=== PATIENT | male | born 1975 | race Caucasian/White ===

== ENCOUNTER 2016-09-30 12:48 | Inpatient (IN) | payer OTHER ==
[2016-09-30 13:11] VITALS: BMI 31.6
--- NOTE | 2016-09-30 13:59 | HP ---
CIWA Score - CIWA Score Nausea/Vomitin-Mild Nausea/No Vomiting Muscle Tremors: 4-Moderate,w/Arms Extend Anxiety: 4-Mod. Anxious/Guarded Agitation: 1-Slight > Activity Paroxysmal Sweats: 1-Minimal Palms Moist Orientation: 0-Oriented Tacttile Disturbances: 1-Very Mild Itch/Numbness Auditory Disturbances: 1-Very Mild Visual Disturbances: 1-Very Mild Sensitivity Headache: 2-Mild CIWA-Ar Total Score: 16 Admission ROS BHS - HPI Chief Complaint: I've lost my job, my marriage, I have to get hold of this and get back on track Allergies/Adverse Reactions: Allergies Allergy/AdvReac Type Severity Reaction Status Date / Time No Known Allergies Allergy Verified 09/30/16 13:52 History of Present Illness: 41 yo gentleman here for detox from alcohol - no seizures but occasional black outs,. Last detox seven months ago in - went into rehab but relapsed in July. Exam Limitations: No Limitations - Ebola screening Have you traveled outside of the country in the last 21 days: No Have you had contact with anyone from an Ebola affected area: No Have you been sick,other than usual withdrawal symptoms: No Do you have a fever: No - Review of Systems Constitutional: Loss of Appetite, Night Sweats, Changes in sleep EENT: reports: Blurred Vision Respiratory: reports: No Symptoms reported Cardiac: reports: No Symptoms Reported GI: reports: Poor Appetite, Indigestion : reports: Frequency Musculoskeletal: reports: Back Pain Integumentary: reports: No Symptoms Reported Neuro: reports: Headache Endocrine: reports: No Symptoms Reported Hematology: reports: No Symptoms Reported Psychiatric: reports: Judgement Intact, Mood/Affect Appropiate, Orientated x3, Anxious Other Systems: Reviewed and Negative Patient History - Patient Medical History Hx Anemia: No Hx Asthma: No Hx Chronic Obstructive Pulmonary Disease (COPD): No Hx Cancer: No Hx Cardiac Disorders: No Hx Congestive Heart Failure: No Hx Hypertension: No Hx Hypercholesterolemia: No Hx Pacemaker: No HX Cerebrovascular Accident: No Hx Seizures: No Hx Dementia: No Hx Diabetes: No Hx Gastrointestinal Disorders: No Hx Liver Disease: No Hx Genitourinary Disorders: No Hx Sexually Transmitted Disorders: No Hx Renal Disease (ESRD): No Hx Thyroid Disease: No Hx Human Immunodeficiency Virus (HIV): No Hx Hepatitis C: No Hx Depression: Yes (never treated) Hx Suicide Attempt: No Hx Bipolar Disorder: No Hx Schizophrenia: No Other Medical History: left knee arthritis, low back pain, 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 (CXR negative) - Patient Surgical History Past Surgical History: Yes Hx Cholecystectomy: Yes (2008) Hx Genitourinary Surgery: Yes (testicular torsion surgery age 11) Anesthesia Reaction: No - PPD History Previous Implant?: Yes Documented Results: Positive w/o proof PPD to be Administered?: No - Reproductive History Patient is a Female of Child Bearing Age (11 -55 yrs old): No (male) - Smoking Cessation Smoking history: Current every day smoker Have you smoked in the past 12 months: Yes Aproximately how many cigarettes per day: 30 Hx Chewing Tobacco Use: No Initiated information on smoking cessation: Yes 'Breaking Loose' booklet given: 09/30/16 (give on floor) - Substance & Tx. History Hx Alcohol Use: Yes Hx Substance Use: Yes Substance Use Type: Alcohol, Cocaine Hx Substance Use Treatment: Yes (detox in [place] 01/2016 ) - Substances Abused Alcohol Route: Oral Frequency: Daily Amount used: 36 sixteen oz beers; 2 pints liquor Age of first use: 12 Date of Last Use: 09/30/16 Crack Route: Smoking Frequency: 1-2 times per week Amount used: $150 Age of first use: 29 Date of Last Use: 09/30/16 Family Disease History - Family Disease History Family Disease History: Diabetes: Mother (alive, hx etoh, liver disease), Heart Disease: Mother, Other: Father ( mva), Mother, Brother (one drinks) Admission Physical Exam [facility] - Vital Signs Vital Signs: Vital Signs - 24 hr 09/30/16 13:09 Temperature 96 F L Pulse Rate 98 H Respiratory 20 Rate Blood Pressure 142/78 - Physical General Appearance: Yes: Nourished, Appropriately Dressed, Mild Distress, Anxious HEENTM: Yes: Hearing grossly Normal, Normal ENT Inspection, Normal Voice Respiratory: Yes: Normal Breath Sounds, No Respiratory Distress Neck: Yes: No masses,lesions,Nodules, Supple Breast: Yes: Breast Exam Deferred Cardiology: Yes: Regular Rhythm, Regular Rate Abdominal: Yes: Soft Back: Yes: Normal Inspection Musculoskeletal: Yes: full range of Motion, Gait Steady Extremities: Yes: Normal Inspection, Normal Range of Motion, Tremors Neurological: Yes: Fully Oriented, Alert, Normal Mood/Affect Integumentary: Yes: Normal Color, Warm Lymphatic: Yes: Within Normal Limits - Diagnostic (1) Alcohol dependence with uncomplicated withdrawal Current Visit: Yes Status: Chronic (2) Cocaine dependence Current Visit: Yes Status: Chronic Qualifiers: Substance use status: uncomplicated Qualified Code(s): F14.20 - Cocaine dependence, uncomplicated (3) Nicotine dependence Current Visit: Yes Status: Chronic Qualifiers: Nicotine product type: cigarettes Substance use status: uncomplicated Qualified Code(s): F17.210 - Nicotine dependence, cigarettes, uncomplicated (4) PPD positive Current Visit: Yes Status: Chronic Comment: never treated Cleared for Admission S - Detox or Rehab [facility] Level of Care: Medically Managed Detox Regimen/Protocol: Librium S Breath Alcohol Content Breath Alcohol Content: 0 Urine Drug Screen - Results Drug Screen Negative: No Urine Drug Screen Results: KAREN-Cocaine
[2016-09-30] MEDS ORDERED: MENTHOL/PHENOL 1 EACH UD MM PRN (14:02)
[2016-09-30] MEDS ORDERED: NICOTINE POLACRILEX 4 MG GUM BUC PRN (14:02)
[2016-09-30] MEDS ORDERED: guaiFENesin/D-METHORPHAN HB 10 ML UNIT-DOSE CUPS PO PRN (14:02)
[2016-09-30] MEDS ORDERED: P-EPHED 60MG/TRIPROLIDI 2.5MG TABLET PO PRN (14:02)
[2016-09-30] MEDS ORDERED: ACETAMINOPHEN 325 MG TABLET (FP) PO PRN (14:02)
[2016-09-30] MEDS ORDERED: chlordiazePOXIDE HCL 25 MG CAPSULE PO ONE (14:02)
[2016-09-30] MEDS ORDERED: MAGNESIUM HYDROX 2400MG/30ML ORAL SUSPENSION 30 ML CUP PO PRN (14:02)
[2016-09-30] MEDS ORDERED: chlordiazePOXIDE HCL 25 MG CAPSULE PO PRN (14:02)
[2016-09-30] MEDS ORDERED: LOPERAMIDE HCL 2 MG CAPSULE PO PRN (14:02)
[2016-09-30] MEDS ORDERED: MAG HYDROX/AL HYDROX/SIMETH 30 ML UNIT-DOSE CUP PO PRN (14:02)
[2016-09-30] MEDS ORDERED: MAGNESIUM CITRATE 300 ML BOTTLE PO PRN (14:02)
[2016-09-30] MEDS ORDERED: IBUPROFEN 400 MG TABLET (FP) PO PRN (14:02)
[2016-09-30] MEDS ORDERED: hydrOXYzine PAMOATE 50 MG CAPSULE (FP) PO PRN (14:02)
[2016-09-30] MEDS: NICOTINE 21 MG/24 HOURS TOPICAL PATCH TD SCH (15:34)
--- NOTE | 2016-09-30 16:24 | CONSULT ---
[facility] Psychiatric Consult - Data Date of interview: 09/30/16 Admission source: [facility] Identifying data: First admission to [facility] for this 41 y/o male seeking detox treatment on for alcohol and cocaine dependence.Patient is ,a father of three,homeless,unemployed and supported on food stamps. Substance Abuse History: - Smoking Cessation. Smoking history: Current every day smoker. Have you smoked in the past 12 months: Yes. Aproximately how many cigarettes per day: 30. Hx Chewing Tobacco Use: No. Initiated information on smoking cessation: Yes. 'Breaking Loose' booklet given: 09/30/16 (give on floor ). - Substance & Tx. History. Hx Alcohol Use: Yes. Hx Substance Use: Yes. Substance Use Type: Alcohol, Cocaine. Hx Substance Use Treatment: Yes (detox in [place] 01/2016 ). - Substances Abused. Alcohol. Route: Oral. Frequency: Daily. Amount used: 36 sixteen oz beers; 2 pints liquor. Age of first use: 12. Date of Last Use: 09/30/16. Crack. Route: Smoking. Frequency: 1-2 times per week. Amount used: $150. Age of first use: 29. Date of Last Use: . Confirmed by the patient in this interview. 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 Physical/Sexual Abuse/Trauma History: Patient denies. Additional Comment: Urine Drug Screen Results: KAREN-Cocaine.Noted. Mental Status Exam - Mental Status Exam Alert and Oriented to: Time, Place, Person Cognitive Function: Good Patient Appearance: Well Groomed Mood: Anxious, Apprehensive, Hopeful Affect: Mood Congruent Patient Behavior: Fatigued, Cooperative Speech Pattern: Clear, Appropriate Voice Loudness: Normal Thought Process: Goal Oriented Thought Disorder: Not Present Hallucinations: Denies Suicidal Ideation: Denies Homicidal Ideation: Denies Insight/Judgement: Poor Sleep: Poorly (patient declines to be on hypnotic medications) Appetite: Good Muscle strength/Tone: Normal Gait/Station: Normal Psychiatric Findings - Problem List ([place] 1, 2,3) (1) Alcohol dependence with uncomplicated withdrawal Current Visit: Yes Status: Chronic (2) Cocaine dependence Current Visit: Yes Status: Acute Qualifiers: Substance use status: uncomplicated Qualified Code(s): F14.20 - Cocaine dependence, uncomplicated (3) Nicotine dependence Current Visit: Yes Status: Acute Qualifiers: Nicotine product type: cigarettes Substance use status: uncomplicated Qualified Code(s): F17.210 - Nicotine dependence, cigarettes, uncomplicated (4) PPD positive Current Visit: Yes Status: Acute Comment: never treated - Initial Treatment Plan Initial Treatment Plan: Psychoeducation.Detoxification.Observation.
[2016-09-30] MEDS: chlordiazePOXIDE HCL 25 MG CAPSULE PO SCH ×2 (17:50→23:38)
[2016-09-30 18:09] LABS: URINE APPEARANCE CLEAR; URINE BILIRUBIN NEGATIVE (NEGATIVE); URINE BLOOD NEGATIVE (NEGATIVE); URINE COLOR LTYELLOW; URINE GLUCOSE (UA) NEGATIVE (NEGATIVE); URINE KETONE NEGATIVE (NEGATIVE); URINE NITRITE NEGATIVE (NEGATIVE); URINE PROTEIN NEGATIVE (NEGATIVE); URINE UROBILINOGEN NEGATIVE E.U./dl (0.2-1.0)
[2016-09-30 18:13] LABS: URINE LEUK ESTERASE TRACE (NEGATIVE)
[2016-09-30 18:18] LABS: URINE BACTERIA RARE /hpf (NONE SEEN); URINE MUCUS RARE; URINE WBC 1 /hpf (3-5)
[2016-09-30] MEDS: THIAMINE HCL 100 MG TABLET (FP) PO SCH (23:38)
[2016-10-01] MEDS: chlordiazePOXIDE HCL 25 MG CAPSULE PO SCH ×4 (05:25→22:23)
[2016-10-01 10:35] LABS: ALBUMIN 3.8 g/dl (3.4-5.0); ANION GAP 11 (8-16); BILIRUBIN,TOTAL 0.4 mg/dL (0.2-1.0); CO2 26 mmol/L (21-32); CREATININE 1.2 mg/dL (0.7-1.3); GLUCOSE,RANDOM 139 mg/dL (74-106); SGOT/AST 13 U/L (15-37); SGPT/ALT 49 U/L (12-78); TOT PROT 6.4 g/dl (6.4-8.2)
[2016-10-01 10:36] LABS: ALK PHOS 114 U/L (45-117)
[2016-10-01 10:37] LABS: MCH 31.7 pg (25.7-33.7); MCHC 33.2 g/dl (32.0-35.9); MEAN CELL VOLUME 95.4 fl (80-96); MEAN PLT VOLUME 8.9 fl (7.5-11.1); PLATELET COUNT 188 K/MM3 (134-434); RDW 13.4 % (11.9-15.9); WHITE BLOOD COUNT 5.8 K/mm3 (4.0-10.0)
[2016-10-01] MEDS: PRENATAL VITAMINS W/ FOLIC ACID TABLET (FP) PO SCH (10:41)
[2016-10-01] MEDS: NICOTINE 21 MG/24 HOURS TOPICAL PATCH TD SCH (10:42)
--- NOTE | 2016-10-01 13:33 | PN ---
[facility] CIWA - CIWA Score Nausea/Vomitin-No Nausea/No Vomiting Muscle Tremors: 4-Moderate,w/Arms Extend Anxiety: 4-Mod. Anxious/Guarded Agitation: 3 Paroxysmal Sweats: 3 Orientation: 0-Oriented Tacttile Disturbances: 0-None Auditory Disturbances: 0-None Visual Disturbances: 0-None Headache: 0-None Present CIWA-Ar Total Score: 14 BHS Progress Note (SOAP) Subjective: tremors,sweating,interrupted sleep,restless Objective: 10/01/16 13:32 Vital Signs - 8 hr 10/01/16 10/01/16 06:30 11:54 Temperature 97 F L 98.3 F Pulse Rate 73 84 Respiratory 18 18 Rate Blood Pressure 119/81 112/75 Laboratory Tests 09/30/16 10/01/16 10/01/16 17:40 07:45 07:45 WBC 5.8 RBC 4.69 Hgb 14.9 Hct 44.7 MCV 95.4 MCHC 33.2 RDW 13.4 Plt Count 188 MPV 8.9 Sodium 143 Potassium 3.6 Chloride 106 Carbon Dioxide 26 Anion Gap 11 BUN 13 Creatinine 1.2 Creat Clearance w eGFR > 60 Random Glucose 139 H Calcium 9.0 Total Bilirubin 0.4 AST 13 L ALT 49 Alkaline Phosphatase 114 Total Protein 6.4 Albumin 3.8 Urine Color Ltyellow Urine Appearance Clear Urine pH 5.0 Ur Specific [place] 1.006 Urine Protein Negative Urine Glucose (UA) Negative Urine Ketones Negative Urine Blood Negative Urine Nitrite Negative Urine Bilirubin Negative Urine Urobilinogen Negative Ur Leukocyte Esterase Trace H Urine RBC None Urine WBC 1 Urine Bacteria Rare Urine Mucus Rare RPR Titer 10/01/16 07:45 WBC RBC Hgb Hct MCV MCHC RDW Plt Count MPV Sodium Potassium Chloride Carbon Dioxide Anion Gap BUN Creatinine Creat Clearance w eGFR Random Glucose Calcium Total Bilirubin AST ALT Alkaline Phosphatase Total Protein Albumin Urine Color Urine Appearance Urine pH Ur Specific [place] Urine Protein Urine Glucose (UA) Urine Ketones Urine Blood Urine Nitrite Urine Bilirubin Urine Urobilinogen Ur Leukocyte Esterase Urine RBC Urine WBC Urine Bacteria Urine Mucus RPR Titer Nonreactive labs noted Assessment: 10/01/16 13:33 Withdrawal sx. Plan: Continue detox
[2016-10-01] MEDS: diphenhydrAMINE HCL 50 MG CAPSULE PO PRN (22:23)
[2016-10-01] MEDS: THIAMINE HCL 100 MG TABLET (FP) PO SCH (22:23)
--- NOTE | 2016-10-02 00:48 | EKG ---
Test Reason : Blood Pressure : / mmHG Vent. Rate : 088 BPM Atrial Rate : 088 BPM P-R Int : 142 ms QRS Dur : 086 ms QT Int : 378 ms P-R-T Axes : 055 068 024 degrees QTc Int : 457 ms NORMAL SINUS RHYTHM NORMAL ECG NO PREVIOUS ECGS AVAILABLE Confirmed by MALU KNOX MD ([id number]) on 10/02/2016 12:48:12 AM Referred By: Confirmed By:MALU KNOX MD
[2016-10-02] MEDS: chlordiazePOXIDE HCL 25 MG CAPSULE PO SCH ×2 (05:21→10:25)
[2016-10-02] MEDS: NICOTINE 21 MG/24 HOURS TOPICAL PATCH TD SCH (10:25)
[2016-10-02] MEDS: PRENATAL VITAMINS W/ FOLIC ACID TABLET (FP) PO SCH (10:25)
--- NOTE | 2016-10-02 16:49 | PN ---
[facility] CIWA - CIWA Score Nausea/Vomitin-No Nausea/No Vomiting Muscle Tremors: 3 Anxiety: 2 Agitation: 1-Slight > Activity Paroxysmal Sweats: 3 Orientation: 0-Oriented Tacttile Disturbances: 0-None Auditory Disturbances: 2-Mild Harshness/Frighten Visual Disturbances: 3-Moderate Sensitivity Headache: 0-None Present CIWA-Ar Total Score: 14 BHS Progress Note (SOAP) Subjective: Fatigue, Constipation, Sweating, Body Aches. Objective: PT. A & O X 3, OBSERVED AMBULATING ON UNIT. 10/02/16 16:47 Vital Signs Temperature 96.7 F L 10/02/16 13:04 Pulse Rate 84 10/02/16 13:04 Respiratory Rate 18 10/02/16 13:04 Blood Pressure 118/77 10/02/16 13:04 O2 Sat by Pulse Oximetry (%) Laboratory Last Values WBC 5.8 K/mm3 (4.0-10.0) 10/01/16 07:45 RBC 4.69 M/mm3 (4.00-5.60) 10/01/16 07:45 Hgb 14.9 GM/dL (11.7-16.9) 10/01/16 07:45 Hct 44.7 % (35.4-49) 10/01/16 07:45 MCV 95.4 fl (80-96) 10/01/16 07:45 MCHC 33.2 g/dl (32.0-35.9) 10/01/16 07:45 RDW 13.4 % (11.9-15.9) 10/01/16 07:45 Plt Count 188 K/MM3 (134-434) 10/01/16 07:45 MPV 8.9 fl (7.5-11.1) 10/01/16 07:45 Sodium 143 mmol/L (136-145) 10/01/16 07:45 Potassium 3.6 mmol/L (3.5-5.1) 10/01/16 07:45 Chloride 106 mmol/L (98-107) 10/01/16 07:45 Carbon Dioxide 26 mmol/L (21-32) 10/01/16 07:45 Anion Gap 11 (8-16) 10/01/16 07:45 BUN 13 mg/dL (7-18) 10/01/16 07:45 Creatinine 1.2 mg/dL (0.7-1.3) 10/01/16 07:45 Creat Clearance w eGFR > 60 (>60) 10/01/16 07:45 Random Glucose 139 mg/dL (74-106) H 10/01/16 07:45 Calcium 9.0 mg/dL (8.5-10.1) 10/01/16 07:45 Total Bilirubin 0.4 mg/dL (0.2-1.0) 10/01/16 07:45 AST 13 U/L (15-37) L 10/01/16 07:45 ALT 49 U/L (12-78) 10/01/16 07:45 Alkaline Phosphatase 114 U/L (45-117) 10/01/16 07:45 Total Protein 6.4 g/dl (6.4-8.2) 10/01/16 07:45 Albumin 3.8 g/dl (3.4-5.0) 10/01/16 07:45 Urine Color Ltyellow 09/30/16 17:40 Urine Appearance Clear 09/30/16 17:40 Urine pH 5.0 (5.0-8.0) 09/30/16 17:40 Ur Specific [place] 1.006 (1.001-1.035) 09/30/16 17:40 Urine Protein Negative (NEGATIVE) 09/30/16 17:40 Urine Glucose (UA) Negative (NEGATIVE) 09/30/16 17:40 Urine Ketones Negative (NEGATIVE) 09/30/16 17:40 Urine Blood Negative (NEGATIVE) 09/30/16 17:40 Urine Nitrite Negative (NEGATIVE) 09/30/16 17:40 Urine Bilirubin Negative (NEGATIVE) 09/30/16 17:40 Urine Urobilinogen Negative E.U./dl (0.2-1.0) 09/30/16 17:40 Ur Leukocyte Esterase Trace (NEGATIVE) H 09/30/16 17:40 Urine RBC None /hpf (0-3) 09/30/16 17:40 Urine WBC 1 /hpf (3-5) 09/30/16 17:40 Urine Bacteria Rare /hpf (NONE SEEN) 09/30/16 17:40 Urine Mucus Rare 09/30/16 17:40 RPR Titer Nonreactive (NONREACTIVE) 10/01/16 07:45 LABS NOTED. Assessment: 10/02/16 16:48 WITHDRAWAL SYMPTOMS. Plan: CONTINUE DETOX. BGM ACBK TOMORROW. PRN MILK OF MAGNESIA FOR CONSTIPATION.
--- NOTE | 2016-10-02 17:30 | PN ---
S CIWA - CIWA Score Nausea/Vomitin Muscle Tremors: 2 Anxiety: 2 Agitation: 1-Slight > Activity Paroxysmal Sweats: 3 Orientation: 0-Oriented Tacttile Disturbances: 0-None Auditory Disturbances: 2-Mild Harshness/Frighten Visual Disturbances: 2-Mild Sensitivity Headache: 0-None Present CIWA-Ar Total Score: 14 BHS Progress Note (SOAP) Subjective: Sweating, Fatigue, Constipation, body aches. Objective: PT. A & O X 3, OBSERVED AMBULATING ON UNIT. 10/02/16 16:43 Vital Signs Temperature 96.7 F L 10/02/16 13:04 Pulse Rate 84 10/02/16 13:04 Respiratory Rate 18 10/02/16 13:04 Blood Pressure 118/77 10/02/16 13:04 O2 Sat by Pulse Oximetry (%) Laboratory Last Values WBC 5.8 K/mm3 (4.0-10.0) 10/01/16 07:45 RBC 4.69 M/mm3 (4.00-5.60) 10/01/16 07:45 Hgb 14.9 GM/dL (11.7-16.9) 10/01/16 07:45 Hct 44.7 % (35.4-49) 10/01/16 07:45 MCV 95.4 fl (80-96) 10/01/16 07:45 MCHC 33.2 g/dl (32.0-35.9) 10/01/16 07:45 RDW 13.4 % (11.9-15.9) 10/01/16 07:45 Plt Count 188 K/MM3 (134-434) 10/01/16 07:45 MPV 8.9 fl (7.5-11.1) 10/01/16 07:45 Sodium 143 mmol/L (136-145) 10/01/16 07:45 Potassium 3.6 mmol/L (3.5-5.1) 10/01/16 07:45 Chloride 106 mmol/L (98-107) 10/01/16 07:45 Carbon Dioxide 26 mmol/L (21-32) 10/01/16 07:45 Anion Gap 11 (8-16) 10/01/16 07:45 BUN 13 mg/dL (7-18) 10/01/16 07:45 Creatinine 1.2 mg/dL (0.7-1.3) 10/01/16 07:45 Creat Clearance w eGFR > 60 (>60) 10/01/16 07:45 Random Glucose 139 mg/dL (74-106) H 10/01/16 07:45 Calcium 9.0 mg/dL (8.5-10.1) 10/01/16 07:45 Total Bilirubin 0.4 mg/dL (0.2-1.0) 10/01/16 07:45 AST 13 U/L (15-37) L 10/01/16 07:45 ALT 49 U/L (12-78) 10/01/16 07:45 Alkaline Phosphatase 114 U/L (45-117) 10/01/16 07:45 Total Protein 6.4 g/dl (6.4-8.2) 10/01/16 07:45 Albumin 3.8 g/dl (3.4-5.0) 10/01/16 07:45 Urine Color Ltyellow 09/30/16 17:40 Urine Appearance Clear 09/30/16 17:40 Urine pH 5.0 (5.0-8.0) 09/30/16 17:40 Ur Specific [place] 1.006 (1.001-1.035) 09/30/16 17:40 Urine Protein Negative (NEGATIVE) 09/30/16 17:40 Urine Glucose (UA) Negative (NEGATIVE) 09/30/16 17:40 Urine Ketones Negative (NEGATIVE) 09/30/16 17:40 Urine Blood Negative (NEGATIVE) 09/30/16 17:40 Urine Nitrite Negative (NEGATIVE) 09/30/16 17:40 Urine Bilirubin Negative (NEGATIVE) 09/30/16 17:40 Urine Urobilinogen Negative E.U./dl (0.2-1.0) 09/30/16 17:40 Ur Leukocyte Esterase Trace (NEGATIVE) H 09/30/16 17:40 Urine RBC None /hpf (0-3) 09/30/16 17:40 Urine WBC 1 /hpf (3-5) 09/30/16 17:40 Urine Bacteria Rare /hpf (NONE SEEN) 09/30/16 17:40 Urine Mucus Rare 09/30/16 17:40 RPR Titer Nonreactive (NONREACTIVE) 10/01/16 07:45 LABS NOTED. Assessment: 10/02/16 16:44 WITHDRAWAL SYMPTOMS Plan: CONTINUE DETOX. INCREASE PO WATER INTAKE. PRN
[2016-10-02] MEDS: chlordiazePOXIDE 5 MG CAPSULE PO SCH ×2 (17:38→22:22)
[2016-10-02] MEDS: diphenhydrAMINE HCL 50 MG CAPSULE PO PRN (22:22)
[2016-10-02] MEDS: THIAMINE HCL 100 MG TABLET (FP) PO SCH (22:22)
[2016-10-03] MEDS: chlordiazePOXIDE 5 MG CAPSULE PO SCH ×2 (05:42→10:21)
[2016-10-03] MEDS: PRENATAL VITAMINS W/ FOLIC ACID TABLET (FP) PO SCH (10:21)
[2016-10-03] MEDS: NICOTINE 21 MG/24 HOURS TOPICAL PATCH TD SCH (10:21)
--- NOTE | 2016-10-03 11:04 | PN ---
BHS Progress Note (SOAP) Subjective: ANXIETY,"WEAK", SWEATS. Objective: 10/03/16 11:02 Vital Signs Temperature 96.8 F L 10/03/16 06:43 Pulse Rate 80 10/03/16 06:43 Respiratory Rate 18 10/03/16 06:43 Blood Pressure 115/80 10/03/16 06:43 O2 Sat by Pulse Oximetry (%) Laboratory Last Values WBC 5.8 K/mm3 (4.0-10.0) 10/01/16 07:45 RBC 4.69 M/mm3 (4.00-5.60) 10/01/16 07:45 Hgb 14.9 GM/dL (11.7-16.9) 10/01/16 07:45 Hct 44.7 % (35.4-49) 10/01/16 07:45 MCV 95.4 fl (80-96) 10/01/16 07:45 MCHC 33.2 g/dl (32.0-35.9) 10/01/16 07:45 RDW 13.4 % (11.9-15.9) 10/01/16 07:45 Plt Count 188 K/MM3 (134-434) 10/01/16 07:45 MPV 8.9 fl (7.5-11.1) 10/01/16 07:45 Sodium 143 mmol/L (136-145) 10/01/16 07:45 Potassium 3.6 mmol/L (3.5-5.1) 10/01/16 07:45 Chloride 106 mmol/L (98-107) 10/01/16 07:45 Carbon Dioxide 26 mmol/L (21-32) 10/01/16 07:45 Anion Gap 11 (8-16) 10/01/16 07:45 BUN 13 mg/dL (7-18) 10/01/16 07:45 Creatinine 1.2 mg/dL (0.7-1.3) 10/01/16 07:45 Creat Clearance w eGFR > 60 (>60) 10/01/16 07:45 POC Glucometer 113 UNITS (()) 10/03/16 05:45 Random Glucose 139 mg/dL (74-106) H 10/01/16 07:45 Calcium 9.0 mg/dL (8.5-10.1) 10/01/16 07:45 Total Bilirubin 0.4 mg/dL (0.2-1.0) 10/01/16 07:45 AST 13 U/L (15-37) L 10/01/16 07:45 ALT 49 U/L (12-78) 10/01/16 07:45 Alkaline Phosphatase 114 U/L (45-117) 10/01/16 07:45 Total Protein 6.4 g/dl (6.4-8.2) 10/01/16 07:45 Albumin 3.8 g/dl (3.4-5.0) 10/01/16 07:45 Urine Color Ltyellow 09/30/16 17:40 Urine Appearance Clear 09/30/16 17:40 Urine pH 5.0 (5.0-8.0) 09/30/16 17:40 Ur Specific [place] 1.006 (1.001-1.035) 09/30/16 17:40 Urine Protein Negative (NEGATIVE) 09/30/16 17:40 Urine Glucose (UA) Negative (NEGATIVE) 09/30/16 17:40 Urine Ketones Negative (NEGATIVE) 09/30/16 17:40 Urine Blood Negative (NEGATIVE) 09/30/16 17:40 Urine Nitrite Negative (NEGATIVE) 09/30/16 17:40 Urine Bilirubin Negative (NEGATIVE) 09/30/16 17:40 Urine Urobilinogen Negative E.U./dl (0.2-1.0) 09/30/16 17:40 Ur Leukocyte Esterase Trace (NEGATIVE) H 09/30/16 17:40 Urine RBC None /hpf (0-3) 09/30/16 17:40 Urine WBC 1 /hpf (3-5) 09/30/16 17:40 Urine Bacteria Rare /hpf (NONE SEEN) 09/30/16 17:40 Urine Mucus Rare 09/30/16 17:40 RPR Titer Nonreactive (NONREACTIVE) 10/01/16 07:45 Assessment: 10/03/16 11:03 WITHDRAWAL SX Plan: CONTINUE DETOX INCREASE PO FLUIDS. REPEAT UA
[2016-10-03 16:50] LABS: URINE APPEARANCE SLCLOUDY; URINE BILIRUBIN NEGATIVE (NEGATIVE); URINE BLOOD NEGATIVE (NEGATIVE); URINE COLOR YELLOW; URINE GLUCOSE (UA) NEGATIVE (NEGATIVE); URINE KETONE NEGATIVE (NEGATIVE); URINE NITRITE NEGATIVE (NEGATIVE); URINE PROTEIN NEGATIVE (NEGATIVE); URINE UROBILINOGEN NEGATIVE E.U./dl (0.2-1.0)
[2016-10-03] MEDS: chlordiazePOXIDE HCL 10 MG CAPSULE PO SCH ×2 (17:19→22:11)
[2016-10-03 17:33] LABS: URINE LEUK ESTERASE TRACE (NEGATIVE)
[2016-10-03 17:37] LABS: URIC ACID CRYSTALS MODERATE /hpf (NONE SEEN); URINE MUCUS RARE; URINE RBC 2 /hpf (0-3); URINE WBC 4 /hpf (3-5)
[2016-10-03] MEDS: THIAMINE HCL 100 MG TABLET (FP) PO SCH (22:11)
[2016-10-03] MEDS: diphenhydrAMINE HCL 50 MG CAPSULE PO PRN (22:12)
[2016-10-04] MEDS: chlordiazePOXIDE HCL 10 MG CAPSULE PO SCH (05:45)
[2016-10-04 10:48] VITALS: BP 106/69; PULSE 18; TEMP 96.6
--- NOTE | 2016-10-04 11:02 | DS ---
[facility] Detox Discharge Summary Admission Date: 09/30/16 Discharge Date: 10/04/16 - History Present History: Alcohol Dependence, Cocaine Dependence Additional Comments: DETOX COMPLETED. ALERT O X 3.NAD. REFERRED TO [facility]. Pertinent Past History: HX PPD+ - Physical Exam Results Vital Signs: Vital Signs Temperature 96.6 F L 10/04/16 10:47 Pulse Rate 18 L 10/04/16 10:47 Respiratory Rate 108 H 10/04/16 10:47 Blood Pressure 106/69 10/04/16 10:47 O2 Sat by Pulse Oximetry (%) Pertinent Admission Physical Exam Findings: WITHDRAWAL SX - Treatment Hospital Course: Detox Protocol Followed, Detoxed Safely, Responded well, Discharged Condition Good, Rehab Referral Accepted Patient has Accepted a Rehab Referral to: [facility] - Medication Discharge Medications: Ambulatory Orders NK [No Known Home Medication] 09/30/16 - Diagnosis (1) Cocaine dependence Current Visit: Yes Status: Acute Qualifiers: Substance use status: uncomplicated Qualified Code(s): F14.20 - Cocaine dependence, uncomplicated (2) Nicotine dependence Current Visit: Yes Status: Acute Qualifiers: Nicotine product type: cigarettes Substance use status: in withdrawal Qualified Code(s): F17.213 - Nicotine dependence, cigarettes, with withdrawal (3) Alcohol dependence with uncomplicated withdrawal Current Visit: Yes Status: Chronic - AMA Did Patient Leave Against Medical Advice: No
== END 2016-10-04 09:40 | disposition other institution (70) | DRG 774 ==
LOC: YASAS 12:48 → Y3N 14:36
PROVIDERS: ADMIT Internal Medicine; ATTEND Internal Medicine
PROC: HZ2ZZZZ Detoxification Services for Substance Abuse Treatment (ICD-10-PCS; principal; 2016-09-30)
DX: F10.230 Alcohol dependence with withdrawal, uncomplicated (principal); F14.20 Cocaine dependence, uncomplicated; F17.213 Nicotine dependence, cigarettes, with withdrawal; R76.11 Nonspecific reaction to tuberculin skin test without active tuberculosis; M54.5 Low back pain; M13.862 Other specified arthritis, left knee
CPT/HCPCS: 36415; 71020-TC; 80053; 81003; 81015; 85027; 86593; 93005; 93010

== ENCOUNTER 2016-10-04 09:36 | Inpatient (IN) | payer OTHER ==
[2016-10-04 10:05] VITALS: BP 134/76; PULSE 93; TEMP 97.7; BMI 33.2
[2016-10-04] MEDS ORDERED: guaiFENesin/D-METHORPHAN HB 10 ML UNIT-DOSE CUPS PO PRN (10:41)
[2016-10-04] MEDS ORDERED: MAGNESIUM HYDROX 2400MG/30ML ORAL SUSPENSION 30 ML CUP PO PRN (10:41)
[2016-10-04] MEDS ORDERED: IBUPROFEN 400 MG TABLET (FP) PO PRN (10:41)
[2016-10-04] MEDS ORDERED: diphenhydrAMINE HCL 50 MG CAPSULE PO PRN (10:41)
[2016-10-04] MEDS ORDERED: P-EPHED 60MG/TRIPROLIDI 2.5MG TABLET PO PRN (10:41)
[2016-10-04] MEDS ORDERED: LOPERAMIDE HCL 2 MG CAPSULE PO PRN (10:41)
[2016-10-04] MEDS ORDERED: MAGNESIUM CITRATE 300 ML BOTTLE PO PRN (10:41)
[2016-10-04] MEDS ORDERED: NICOTINE POLACRILEX 2 MG GUM BUC PRN (10:41)
[2016-10-04] MEDS ORDERED: MENTHOL/PHENOL 1 EACH UD MM PRN (10:41)
[2016-10-04] MEDS ORDERED: MAG HYDROX/AL HYDROX/SIMETH 30 ML UNIT-DOSE CUP PO PRN (10:41)
[2016-10-04] MEDS ORDERED: ACETAMINOPHEN 325 MG TABLET (FP) PO PRN (10:41)
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
[2016-10-04] MEDS ORDERED: HYDROCORTISONE 1% TOPICAL CREAM 30 GM TUBE TP PRN (14:30)
[2016-10-04] MEDS ORDERED: COLLOIDAL OATMEAL 1 BAR EACH TP PRN (14:30)
--- NOTE | 2016-10-04 16:24 | HP ---
[facility] Assess/Revision - Admission History Admitted to Rehab from: [facility] Date of Admission to Rehab: 10/04/16 - Vital signs Vital Signs: Vital Signs Period Temp Pulse Resp BP Sys/Marr Pulse Ox Last 24 Hr 97.7 F 93 18 134/76 - Findings Detox History & Physical reviewed: Yes Concur with findings: Yes Comments/Additional Findings: transferred from detox to rehab admission as per protocol
[2016-10-04] MEDS ORDERED: THIAMINE HCL 100 MG TABLET (FP) PO SCH (22:00)
[2016-10-05] MEDS ORDERED: PRENATAL VITAMINS W/ FOLIC ACID TABLET (FP) PO SCH (10:00)
--- NOTE | 2016-10-05 14:48 | PN ---
S Progress Note Note: Patient decided to leave against medical advice despite encouragement by nursing staff to stay and complete this program
== END 2016-10-05 14:42 | disposition left against medical advice (07) | DRG 770 ==
LOC: YASAS 09:36 → Y3W 09:38
PROVIDERS: ADMIT Psychiatry & Neurology Psychiatry; ATTEND Psychiatry & Neurology Psychiatry
PROC: HZ42ZZZ Group Counseling for Substance Abuse Treatment, Cognitive-Behavioral (ICD-10-PCS; principal; 2016-10-04)
DX: F10.20 Alcohol dependence, uncomplicated (principal); F14.20 Cocaine dependence, uncomplicated; F17.210 Nicotine dependence, cigarettes, uncomplicated; F19.24 Other psychoactive substance dependence with psychoactive substance-induced mood disorder; F43.10 Post-traumatic stress disorder, unspecified; R76.11 Nonspecific reaction to tuberculin skin test without active tuberculosis; M13.862 Other specified arthritis, left knee; Z90.49 Acquired absence of other specified parts of digestive tract